=== PATIENT | male | born 1960 | race Caucasian/White ===

== ENCOUNTER 2019-10-27 15:35 | Emergency (ER) | payer OTHER ==
[~2019-10-27] VITALS: Ht 185.4 cm; Wt 89.8 kg
[2019-10-27] MEDS ORDERED: LIDOCAINE 1% HCL (LOCAL ANESTH.) INJ 20ML MDV IJ ONE (19:15)
[2019-10-27] MEDS ORDERED: TETANUS-DIPTH-ACEL PERTUSSIS 0.5ML SYR Tdap IM ONE (19:15)
[2019-10-27 20:55] VITALS: BP 140/83
== END 2019-10-27 21:15 | disposition home or self-care (01) ==
LOC: ER 15:35
DX: S81.811A Laceration without foreign body, right lower leg, initial encounter (principal); I10 Essential (primary) hypertension; W22.8XXA Striking against or struck by other objects, initial encounter; Y93.89 Activity, other specified; Y92.89 Other specified places as the place of occurrence of the external cause; Y99.0 Civilian activity done for income or pay
CPT/HCPCS: 12004; 90471; 90715